=== PATIENT | female | born 1955 | race American Indian/Alaskan Native ===

== ENCOUNTER 2019-11-29 15:25 | Emergency (ER) | payer MEDICARE ==
--- NOTE | 2019-11-29 15:59 | Emergency Department Report ---
ED Shortness of Breath HPI - General Stated Complaint: FLACA Time Seen by Provider: 11/29/19 15:50 Source: patient, EMS, RN notes reviewed Mode of arrival: Stretcher - History of Present Illness Initial Comments: This is a 63-year-old female with history of hypertension, who presents with shortness of breath. Patient has shortness of breath on today. She was concerned because she could hardly yell out to her son for help. She arrived per EMS. She denies any pain. She has had bradycardia and hypotension according to EMS. She may have taken too much blood pressure medicine. MD Complaint: shortness of breath -: Gradual, This morning Severity: severe Consistency: constant Improves With: nothing Worsens With: nothing - Related Data Allergies Allergy/AdvReac Type Severity Reaction Status Date / Time No Known Allergies Allergy Unverified 11/29/19 17:23 ED Review of Systems ROS: Stated complaint: FLACA Other details as noted in HPI Comment: All other systems reviewed and negative Constitutional: malaise. denies: fever Respiratory: shortness of breath Cardiovascular: denies: chest pain ED Past Medical Hx - Past Medical History Previous Medical History?: Yes Hx Hypertension: Yes ED Physical Exam - General General appearance: alert, in distress, other (Obvious work of breathing, patient appears uncomfortable, grunting and moaning) - Head Head exam: Present: atraumatic, normocephalic - Eye Eye exam: Present: normal appearance - ENT ENT exam: Present: mucous membranes moist - Neck Neck exam: Present: normal inspection, full ROM. Absent: tenderness, meningismus - Respiratory Respiratory exam: Present: respiratory distress, accessory muscle use, decreased breath sounds. Absent: prolonged expiratory - Cardiovascular Cardiovascular Exam: Present: normal rhythm, bradycardia, normal heart sounds. Absent: systolic murmur, diastolic murmur, rubs, gallop - GI/Abdominal GI/Abdominal exam: Present: soft. Absent: distended, tenderness, guarding, rebound - Extremities Exam Extremities exam: Present: normal inspection - Neurological Exam Neurological exam: Present: alert, oriented X3 - Psychiatric Psychiatric exam: Present: agitated - Skin Skin exam: Present: warm, dry, intact, normal color. Absent: rash ED Course Vital Signs 11/29/19 11/29/19 11/29/19 15:40 15:45 16:00 Pulse Rate 59 L 54 L 50 L Respiratory 23 18 21 Rate Blood Pressure 88/50 86/56 O2 Sat by Pulse 99 81 L Oximetry 11/29/19 11/29/19 11/29/19 16:05 16:13 16:16 Pulse Rate 62 66 Respiratory 20 20 13 Rate Blood Pressure 100/59 86/56 O2 Sat by Pulse 100 98 98 Oximetry 11/29/19 11/29/19 11/29/19 16:30 16:46 17:00 Pulse Rate 48 L 54 L 54 L Respiratory 12 15 14 Rate Blood Pressure 86/56 86/56 86/56 O2 Sat by Pulse 91 87 91 Oximetry 11/29/19 11/29/19 11/29/19 17:16 17:30 17:46 Pulse Rate 55 L 60 56 L Respiratory 13 13 10 L Rate Blood Pressure 86/56 86/56 86/56 O2 Sat by Pulse 92 98 97 Oximetry 11/29/19 18:00 Pulse Rate 56 L Respiratory 14 Rate Blood Pressure 86/56 O2 Sat by Pulse 99 Oximetry ED Medical Decision Making - Lab Data Result diagrams: 11/29/19 16:06 11/29/19 16:06 - EKG Data EKG shows normal: sinus rhythm, intervals Rate: normal - EKG Data 11/29/19 16:00 EKG obtained 1548 Normal sinus rhythm rate 60 bpm normal axis prolonged QT no ST elevation - Radiology Data Radiology results: report reviewed CHEST 1 VIEW, 11/29/2019 4:19 PM CLINICAL INFORMATION/INDICATION: Shortness of breath COMPARISON: None FINDINGS: SUPPORT DEVICES: None. HEART: The cardiac silhouette is normal in size. LUNGS/PLEURA: The lungs are clear of focal airspace disease or significant pleural effusion. ADDITIONAL FINDINGS: No additional acute findings. IMPRESSION: 1. No evidence of acute cardiopulmonary process. Signer Name: Gladys Moore MD Signed: 11/29/2019 4:39 PM Workstation Name: [id number] - Medical Decision Making After further history, staff member spoke with son. Patient was given a beverage which contain cannabis. Patient did appear mildly delirious. But grunting and moaning would be explained by marijuana intoxication. Patient ingested approximately 180 mg of THC according to a cable label. I have reviewed labs and chest radiograph. CBC chemistry BNP d-dimer blood alcohol level all within normal limits. Chest radiograph no acute process. EKG unremarkable. I suspect patient's symptoms are due to marijuana intoxication. Bradycardia hypotension resolved after a period of observation. After 3 hours observation, patient is now lucid without any symptoms. She admit not meet to drinking a beverage with marijuana/cannabis. She stated that her niece gave her the beverage in order to celebrate her family members individual birthdays. Clinical impression: Marijuana intoxication Critical care attestation.: If time is entered above; I have spent that time in minutes in the direct care of this critically ill patient, excluding procedure time. ED Disposition Clinical Impression: Marijuana intoxication Disposition: DC-01 TO HOME OR SELFCARE Is pt being admited?: No Does the pt Need Aspirin: No Condition: Stable Instructions: Cannabis Abuse (ED)
[2019-11-29 16:25] LABS: Basophils # (Auto) 0.1 K/mm3 (0.0-0.1); Basophils % (Auto) 0.9 % (0.0-1.8); Eosinophils # (Auto) 0.1 K/mm3 (0.0-0.4); Eosinophils % (Auto) 1.1 % (0.0-4.3); Hematocrit 40.1 % (30.3-42.9); Hemoglobin 13.4 gm/dl (10.1-14.3); Lymphocytes % (Auto) 32.3 % (13.4-35.0); Mean Corpuscular HGB Conc 33 % (30-34); Mean Corpuscular Volume 83 fl (79-97); Monocytes # (Auto) 0.4 K/mm3 (0.0-0.8); Platelet Count 197 K/mm3 (140-440); Red Blood Count 4.81 M/mm3 (3.65-5.03); Red Cell Distribution Width 14.5 % (13.2-15.2)
--- NOTE | 2019-11-29 16:43 | XRay Report ---
CHEST 1 VIEW, 11/29/2019 4:19 PM CLINICAL INFORMATION/INDICATION: Shortness of breath COMPARISON: None FINDINGS: SUPPORT DEVICES: None. HEART: The cardiac silhouette is normal in size. LUNGS/PLEURA: The lungs are clear of focal airspace disease or significant pleural effusion. ADDITIONAL FINDINGS: No additional acute findings. IMPRESSION: 1. No evidence of acute cardiopulmonary process. Signer Name: Gladys Moore MD Signed: 11/29/2019 4:39 PM Workstation Name: [id number]
[2019-11-29 16:50] LABS: Alanine Aminotransferase 18 units/L (7-56); Albumin 4.2 g/dL (3.9-5); BUN/Creatinine Ratio 14; Blood Urea Nitrogen 14 mg/dL (7-17); Calcium 10.2 mg/dL (8.4-10.2); Hemolysis Index 13
[2019-11-29 18:33] VITALS: BP 131/72
== END 2019-11-29 18:39 | disposition home or self-care (01) ==
LOC: ED 15:25
DX: F12.929 Cannabis use, unspecified with intoxication, unspecified (principal); I10 Essential (primary) hypertension
CPT/HCPCS: 36415; 71045; 80053; 80320; 82728; 83615; 83880; 84145; 84484; 85025; 85379; 86140; 87040; 93005; G0480

== ENCOUNTER 2020-03-19 13:01 | Emergency (ER) | payer MEDICARE ==
[2020-03-19] MEDS ORDERED: oxyCODONE /ACETAMINOPHEN 5-325MG TAB PO ONE (13:08)
--- NOTE | 2020-03-19 13:10 | Emergency Department Report ---
ED Lower Extremity HPI - General Chief Complaint: Extremity Injury, Lower Stated Complaint: POS BROKEN ANKLE Time Seen by Provider: 03/19/20 13:07 Source: patient Mode of arrival: Wheelchair Limitations: No Limitations - History of Present Illness Initial Comments: 64-year-old female with only doing yard work just prior to arrival trying to use a piece of your equipment calling [employer]EN of which she lost control trying to prevent from falling in the process place her right leg and ankle in an awkward position of which she states was deformed and she self corrected and with a pop to put it back in the right spot. Since that time significant painful swelling and use of the ankle and presents emerge department for further treatment and evaluation. Pain is worse with palpation and ambulation and she reports no numbness or tingling. No fevers chills or sweats. No pre-existing problems to the ankle or foot MD Complaint: ankle injury - Related Data Previous Rx's Medication Instructions Recorded Last Taken Type oxyCODONE /ACETAMINOPHEN [Percocet 1 tab PO Q6HR PRN #14 tablet 03/19/20 Unknown Rx 5/325] Allergies Allergy/AdvReac Type Severity Reaction Status Date / Time Sulfa (Sulfonamide Allergy Hives Verified 03/19/20 15:57 Antibiotics) ED Review of Systems ROS: Stated complaint: POS BROKEN ANKLE Other details as noted in HPI Comment: All other systems reviewed and negative ED Past Medical Hx - Past Medical History Previous Medical History?: Yes Hx Hypertension: Yes Additional medical history: RT MASTECTOMY - Surgical History Past Surgical History?: Yes - Social History Smoking Status: Never Smoker Substance Use Type: None - Medications Home Medications: Home Medications Medication Instructions Recorded Confirmed Last Taken Type oxyCODONE /ACETAMINOPHEN [Percocet 1 tab PO Q6HR PRN #14 tablet 03/19/20 Unknown Rx 5/325] ED Physical Exam - General Limitations: No Limitations General appearance: alert, in no apparent distress - Head Head exam: Present: atraumatic, normocephalic - Eye Eye exam: Present: normal appearance - ENT ENT exam: Present: mucous membranes moist - Neck Neck exam: Present: normal inspection - Respiratory Respiratory exam: Present: normal lung sounds bilaterally. Absent: respiratory distress - Cardiovascular Cardiovascular Exam: Present: regular rate, normal rhythm. Absent: systolic murmur, diastolic murmur, rubs, gallop - GI/Abdominal GI/Abdominal exam: Present: soft, normal bowel sounds - Extremities Exam Extremities exam: Present: normal inspection, tenderness, normal capillary refill, joint swelling - Expanded Lower Extremity Exam Right Ankle exam: Present: tenderness, swelling, dislocation. Absent: abrasion, laceration, ecchymosis Neuro vascular tendon exam: Present: no vascular compromise. Absent: pulse deficit, abnormal cap refill - Back Exam Back exam: Present: normal inspection. Absent: CVA tenderness (R), CVA tenderness (L) - Neurological Exam Neurological exam: Present: alert, oriented X3, CN II-XII intact, abnormal gait - Psychiatric Psychiatric exam: Present: normal affect, normal mood - Skin Skin exam: Present: warm, dry, intact, normal color. Absent: rash ED Course Vital Signs 03/19/20 03/19/20 03/19/20 13:06 15:53 16:07 Temperature 97.9 F Pulse Rate 81 Pulse Rate [ 94 H 69 Intra-Procedure ] Pulse Rate [ 58 L Post-Procedure] Respiratory 20 Rate Respiratory 18 14 Rate [Intra- Procedure] Respiratory 10 L Rate [Post- Procedure] Blood Pressure 112/71 Blood Pressure 122/65 137/67 [Intra- Procedure] Blood Pressure [Left] Blood Pressure 133/59 [Post-Procedure ] O2 Sat by Pulse 95 Oximetry O2 Sat by Pulse 94 98 Oximetry [ Intra-Procedure ] O2 Sat by Pulse 98 Oximetry [Post -Procedure] 03/19/20 03/19/20 03/19/20 16:18 16:30 16:48 Temperature Pulse Rate 55 L 53 L Pulse Rate [ Intra-Procedure ] Pulse Rate [ 53 L Post-Procedure] Respiratory 14 Rate Respiratory Rate [Intra- Procedure] Respiratory 13 Rate [Post- Procedure] Blood Pressure Blood Pressure [Intra- Procedure] Blood Pressure 122/58 140/54 [Left] Blood Pressure 136/54 [Post-Procedure ] O2 Sat by Pulse 99 97 Oximetry O2 Sat by Pulse Oximetry [ Intra-Procedure ] O2 Sat by Pulse 98 Oximetry [Post -Procedure] - Orthopedic Fracture Reduction Fracture #1 Consent Obtained: verbal consent Time Out Performed: Yes Side: right Fracture Reduction Location: tibia, fibula Analgesia: moderate sedation Technique: traction/counter-traction, traction splint Post Reduction X-rays Demonstrate: acceptable reduction Post-Reduction Neuro Exam: intact Post-Reduction Vascular Exam: intact Splint Applied: Yes Patient Tolerated Procedure: well ED Lower Extremity MDM - Radiology Data Radiology results: report reviewed Referring Physician:WESLEY NGOPatient Name:WILMER ARRIAGAPatient ID:[id number] of :[id number]:FemaleAccession:[id number] Date:[id number] Status:Finalized Findings [facility] [address] [place] [address] XRay Report Signed Patient: WILMER ARRIAGA MR#: [id number] : 1955 Acct:[id number] Age/Sex: 64 / F ADM Date: 03/19/20 Loc: ED Attending Dr: Ordering Physician: ULISES BUSTOS Date of Service: 03/19/20 Procedure(s): XR ankle 2V RT Accession Number(s): [id number] cc: ULISES BUSTOS Fluoro Time In Minutes: RIGHT ANKLE 2 VIEWS INDICATION / CLINICAL INFORMATION: PAIN/SWELLING R/T INJURY COMPARISON: None available. FINDINGS: BONES / JOINT(S): Fracture dislocation at the ankle with a transverse fracture through the medial malleolus and a comminuted fracture to the lateral malleolus. There is avulsion of the posterior malleolus. The tibia is dislocated anteriorly relative to the talus. SOFT TISSUES: Joint effusion. Soft tissue swelling greater anteriorly. ADDITIONAL FINDINGS: None. Signer Name: Henry Bullard MD Signed: 03/19/2020 1:47 PM Workstation Name: [id number] Transcribed By: ES Dictated By: Henry Bullard MD Electronically Authenticated By: Henry Bullard MD Signed Date/Time: 03/19/20 1347 DD/ 1345 TD/TT: - Medical Decision Making 60-year-old female status post fracture of the ankle that was that was displaced. Initial reduction was unsuccessful which was done without sedation. The second reduction was done with moderate sedation. And good stable reduction was obtained wound was splinted with a Peever splint and verified with x-rays. Dr. Dhillon is aware of the x-ray postreduction x-ray findings see his note for more detail Critical care attestation.: If time is entered above; I have spent that time in minutes in the direct care of this critically ill patient, excluding procedure time. ED Disposition Clinical Impression: Fracture of tibia with fibula, right, closed, Displaced bimalleolar fracture of right ankle Disposition: - TO HOME OR SELFCARE Is pt being admited?: No Does the pt Need Aspirin: No Condition: Stable Instructions: Ankle Fracture (ED) Prescriptions: oxyCODONE /ACETAMINOPHEN [Percocet 5/325] 1 tab PO Q6HR PRN #14 tablet PRN Reason: Pain Referrals: CORNELIA PUGA MD [Staff Physician] - 3-5 Days
--- NOTE | 2020-03-19 13:52 | XRay Report ---
RIGHT ANKLE 2 VIEWS INDICATION / CLINICAL INFORMATION: PAIN/SWELLING R/T INJURY COMPARISON: None available. FINDINGS: BONES / JOINT(S): Fracture dislocation at the ankle with a transverse fracture through the medial mal leolus and a comminuted fracture to the lateral malleolus. There is avulsion of the posterior malleol us. The tibia is dislocated anteriorly relative to the talus. SOFT TISSUES: Joint effusion. Soft tissue swelling greater anteriorly. ADDITIONAL FINDINGS: None. Signer Name: Henry Bullard MD Signed: 03/19/2020 1:47 PM Workstation Name: [id number]
--- NOTE | 2020-03-19 13:53 | XRay Report ---
RIGHT FOOT 3 VIEWS INDICATION / CLINICAL INFORMATION: PAIN/SWELLING R/T INJURY COMPARISON: None available. FINDINGS: BONES / JOINT(S): Trimalleolar fracture dislocation at the right ankle is again noted. No foot injury identified. SOFT TISSUES: Soft tissue swelling greatest anteriorly. Joint effusion. ADDITIONAL FINDINGS: None. Signer Name: Henry Bullard MD Signed: 03/19/2020 1:48 PM Workstation Name: [id number]
[2020-03-19] MEDS ORDERED: HYDROmorphone 1 MG/1 ML INJ IV ONE (14:02)
[2020-03-19] MEDS ORDERED: ONDANSETRON 4 MG/2 ML INJ IV STA (14:03)
--- NOTE | 2020-03-19 15:12 | Event Note ---
Face to Face: For this encounter I have reviewed the PA/SUPERVISING EDITOR TRAILER documentation, treatment plan, medical decision making, and I had face to face time with this patient. Patient with a trimalleolar fracture. Patient given pain management and we will put the patient in [facility] and realign her ankle. Patient placed in splint by myself and Mr. Spear.
--- NOTE | 2020-03-19 15:40 | XRay Report ---
HISTORY:post reduction COMPARISON: The same day TECHNIQUE: AP and lateral views were obtained FINDINGS: Bones: Fracture dislocation of the tibia talar articulation has been reduced. Again noted fracture ob liquely oriented distal fibula and transverse fracture of the medial malleolus is present. Joint spaces: Maintained. Soft tissues: No significant abnormality. Additional findings: None. IMPRESSION: 1. Post reduction exam with improved alignment as compared to previous exam with stabilization device in place Signer Name: Andres Goldberg MD Signed: 03/19/2020 3:35 PM Workstation Name: [id number]
[2020-03-19] MEDS ORDERED: ETOMIDATE 20 MG/10 ML INJ IV ONE ×2 (15:49→15:57)
--- NOTE | 2020-03-19 16:50 | XRay Report ---
RIGHT ANKLE 2 VIEWS POSTREDUCTION INDICATION / CLINICAL INFORMATION: post reduction 2nd attempt. COMPARISON: None available. FINDINGS: Once again a fracture dislocation of the ankle is seen. The ankle joint has been better reduced than on the prior exam. There are still moderate displacement of the fracture fragments Signer Name: Deric Kern MD FACKevin Signed: 03/19/2020 4:46 PM Workstation Name: [id number]
[2020-03-19 17:21] VITALS: BP 132/59
== END 2020-03-19 18:11 | disposition home or self-care (01) ==
LOC: ED 13:01
DX: S82.51XA Displaced fracture of medial malleolus of right tibia, initial encounter for closed fracture (principal); S82.841A Displaced bimalleolar fracture of right lower leg, initial encounter for closed fracture; S82.401A Unspecified fracture of shaft of right fibula, initial encounter for closed fracture; I10 Essential (primary) hypertension; Z98.890 Other specified postprocedural states; Z79.899 Other long term (current) drug therapy; Z88.2 Allergy status to sulfonamides; X58.XXXA Exposure to other specified factors, initial encounter; Y93.89 Activity, other specified; Y92.89 Other specified places as the place of occurrence of the external cause; Y99.8 Other external cause status
CPT/HCPCS: 27810; 73600; 73630; 96374; 96375; 99285; J1170; J2405

== ENCOUNTER 2020-08-09 13:41 | Outpatient (CLI) | payer MEDICARE ==
--- NOTE | 2020-08-09 14:36 | XRay Report ---
RIGHT ANKLE 3 VIEWS INDICATION: PAIN IN RIGHT ANKLE. COMPARISON: 03/19/2020 IMPRESSION: The previously described complex fracture at the left ankle has been internally fixated with metal plate and screws. Alignment appears anatomic. Fracture lines are no longer evident. Mild to moderate periarticular osteopenia has developed. No new acute process is appreciated. There is mod erate diffuse soft tissue swelling or edema. Signer Name: Ventura Munguia Jr, MD Signed: 08/09/2020 2:32 PM Workstation Name: [id number]
== END 2020-08-09 13:42 | disposition home or self-care (01) ==
LOC: XRAY 13:41
PROVIDERS: ATTEND Orthopaedic Surgery
DX: M85.871 Other specified disorders of bone density and structure, right ankle and foot (principal)